=== PATIENT | female | born 1975 | race Caucasian/White ===

== ENCOUNTER → 2017-02-25 | Outpatient (CLI) | payer OTHER | LOC: MRI 14:28 | DX: R51 Headache (principal) ==

== ENCOUNTER → 2017-04-04 | Outpatient (CLI) | payer OTHER | LOC: RAD 13:43 | DX: J84.10 Pulmonary fibrosis, unspecified (principal); J18.9 Pneumonia, unspecified organism ==

== ENCOUNTER → 2017-07-05 | Outpatient (CLI) | payer OTHER | LOC: MRI 07-01 11:43 | DX: M47.896 Other spondylosis, lumbar region (principal) ==